=== PATIENT | female | born 1990 | race Caucasian/White ===

== ENCOUNTER 2016-10-17 21:49 | Emergency (ER) | payer MEDICAID ==
[~2016-10-17] VITALS: Ht 167.6 cm; Wt 108.5 kg
[~2016-10-17 21:49] MED LIST: DENIES; HYDR-3498 PO; NPH10OT RIGHT EAR; PREN1TAB13
[2016-10-17 21:55] VITALS: Ht 167.6 cm; Wt 108.5 kg
--- NOTE | 2016-10-17 22:24 | ERD ---
ER Documentation Chief Complaint Date/Time DATE: 10/17/16 TIME: 22:10 Chief Complaint menstrual cramps, menstruation x 9 days HPI 26-year-old female presents emergency department for pelvic pain for 9 days. Also complains of vaginal bleeding. Stated that her menstrual period was supposed to stop 9 days ago but continued. Sexually active with one partner only. Last sexual activity was 2-1/2 weeks ago. Partner has no symptoms. Denies headache, loss of consciousness, dizziness, blurry vision, changes in vision, photophobia, facial pain, ear pain, throat pain, difficulty swallowing, neck pain, shoulder pain, chest pain, cough, hemoptysis, abdominal pain, back pain, loss of appetite, nausea, vomiting, hematochezia, diarrhea, constipation, , the possibility of being , bladder and bowel incontinences, extremity weakness, extremity tenderness, numbness or tingling sensation, difficulty walking, recent travel, recent exposure to illness, recent antibiotic use in the last 3 months, fever, chills. LMP: Stated that she still having vaginal bleeding. A0. No known drug allergies. No past medical history. Surgical history: 2. Medication: control pills. Social: Works as a oral hygienist. Denies smoking, use of alcohol, use of illegal drugs. ROS All systems reviewed and are negative except as per history of present illness. Medications Home Meds Active Scripts Acetaminophen* (Tylophen*) 500 Mg Capsule, 2 CAP PO Q8H Y for PAIN AND OR ELEVATED TEMP, #20 CAP Prov:YAMILETH MIRZA F 10/18/16 Multivit/Min/Fol Ac/Iron/Pren* ( S*) 1 Tab Tab, 1 TAB PO DAILY, #30 TAB Prov:YAMILETH MIRZA F 10/18/16 Hydrocodone Bit-Acetaminophen* ([place]*) 5-325 Mg Tab, 1 TAB PO Q4H Y for pa, # 30 TAB Prov:FRITZ CAMPO NP 02/28/15 Neomycin/Polymyxin/Hydrocort* (Cortisporin* Otic) 10 Ml Susp, 4 DROP RIGHT EAR QID for 7 Days, EA Prov:FRITZ CAMPO NP 02/28/15 Reported Medications [none] Unknown Strength No Conflict Check 02/28/15 Allergies Allergies: Coded Allergies: No Known Drug Allergy (Verified Allergy, Unknown, 02/28/15) PMhx/Soc Medical and Surgical Hx: pt denies Medical Hx History of Surgery: Yes (2 CSECTION) Anesthesia Reaction: No Hx Neurological Disorder: No Hx Respiratory Disorders: No Hx Cardiac Disorders: No Hx Psychiatric Problems: No Hx Miscellaneous Medical Probl: No Hx Alcohol Use: No Hx Substance Use: No Hx Tobacco Use: No Smoking Status: Never smoker Physical Exam Vitals Vital Signs Date Time Temp Pulse Resp B/P Pulse Ox O2 Delivery O2 Flow Rate FiO2 10/18/16 02:27 98.2 86 22 98 Room Air 10/17/16 21:55 99.1 83 20 176/87 100 Physical Exam CONSTITUTIONAL: Well-appearing; well-nourished; in no apparent distress. HEAD: Normocephalic; atraumatic. EYES: Conjunctiva clear, sclera non-icteric, EOM intact. PERRL Ears: Hearing intact. EACs clear, TMs non-bulging, non-inflamed, translucent & mobile, ossicles normal appearance, No obstructions, no erythema, no discharges Nose: No obstructions. No polyps. No external lesions. Mucosa non-inflamed. No external lesions, septum and turbinates normal. No rhinorrhea. No discharges. Frontal sinus is non-tender to palpation. Maxillary sinus is non-tender to palpation. MOUTH: Moist mucous membranes, no lesion, no obstructions, no vesicles, no thrush, patent airway Throat: Uvula in midline. Right tonsil is +1 with no erythema, no exudate. Left tonsil is +1 with no erythema, no exudate. Tolerating secretions well. Good gag reflex. Patent airway. Neck: Supple, without lesions, bruits, or adenopathy. No mass. Thyroid non- enlarged and non-tender to palpation. CHEST: Symmetrical chest. Respirations even and not labored. No retractions noted. CARDIOVASCULAR: Normal S1, S2. RRR. No murmurs, gallops. RESPIRATORY: Normal chest excursion with respiration; breath sounds clear and equal bilaterally; no wheezes, rhonchi, or rales. Breathing even and unlabored. Speaking in clear, full, and complete sentences w/ ease. ABDOMEN: Normal bowel sounds normal. Soft, round, non-distended, non-guarding, no tenderness, no rebound, no organomegaly, no masses, no pulsating abdominal mass. No hernia. No peritoneal signs. : No CVA tenderness. BACK: Symmetrical shoulder. Spine is midline without deformity, tenderness. No evidence of trauma or deformity. PELVIS: Stable pelvis. No evidence of trauma or deformity. Has pelvic tenderness to palpation. MUSCULOSKELETAL: Normal gait and station. No misalignment, asymmetry, crepitation, defects, tenderness, masses, effusions, decreased range of motion, instability, atrophy or abnormal strength or tone in the head, neck, spine, ribs , pelvis or extremities. No calf tenderness. NEUROVASCULAR: Distal pulses are present. Pedal pulse are present, equal, and normal. Capillary refills are < 2 seconds. NEUROLOGIC: Alert and oriented x4. Speaks full and clear sentences. Cranial Nerves II-XII normal. Sensation to pain, touch, and proprioception normal. Grossly unremarkable. No neurologic deficits. Romberg test is negative. PSYCHOLOGICAL: The patients mood and manner are appropriate. No hallucinations , delusions. Not SI. Not HI. Has the capacity to decide for self SKIN: Normal for age and ethnicity; warm; dry; good turgor; no apparent lesions or exudates. No rashes, hives, discoloration. Intact. Result Diagram: 10/17/16 [id number] Results 24 hrs Laboratory Tests Test 10/17/16 22:58 10/17/16 23:00 10/18/16 00:45 Urine Color YELLOW Urine Clarity SLIGHTLY CLOUDY Urine pH 6.0 Urine Specific [place] 1.018 Urine Ketones NEGATIVEmg/dL Urine Nitrite NEGATIVEmg/dL Urine Bilirubin NEGATIVEmg/dL Urine Urobilinogen NEGATIVEmg/dL Urine Leukocyte Esterase TRACELeu/ul Urine Microscopic RBC 140/HPF Urine Microscopic WBC 15/HPF Urine Squamous Epithelial Cells FEW/HPF Urine Bacteria FEW/HPF Urine Mucus FEW/HPF Urine Hemoglobin 3+mg/dL Urine Glucose 1+mg/dL Urine Total Protein 1+mg/dl White Blood Count 8.210^3/ul Red Blood Count 4.1910^6/ul Hemoglobin 11.5g/dl Hematocrit 36.2% Mean Corpuscular Volume 86.4fl Mean Corpuscular Hemoglobin 27.4pg Mean Corpuscular Hemoglobin Concent 31.8g/dl Red Cell Distribution Width 13.3% Platelet Count 57164^3/UL Mean Platelet Volume 11.3fl Neutrophils % 52.7% Lymphocytes % 37.4% Monocytes % 6.5% Eosinophils % 2.2% Basophils % 1.0% Nucleated Red Blood Cells % 0.0/100WBC Neutrophils # (Manual) 410^3/ul Lymphocytes # 3.110^3/ul Monocytes # 0.510^3/ul Eosinophils # 0.210^3/ul Basophils # 0.110^3/ul Nucleated Red Blood Cells # 0.010^3/ul Sodium Level 139mmol/L Potassium Level 3.8mmol/L Chloride Level 100mmol/L Carbon Dioxide Level 27mmol/L Anion Gap 16 Blood Urea Nitrogen 9mg/dl Creatinine 0.62mg/dl Glucose Level 173mg/dl Calcium Level 9.7mg/dl Total Bilirubin 0.1mg/dl Direct Bilirubin 0.00mg/dl Indirect Bilirubin 0.1mg/dl Aspartate Amino Transf (AST/SGOT) 151IU/L Alanine Aminotransferase (ALT/SGPT) 196IU/L Alkaline Phosphatase 86IU/L Total Protein 8.4g/dl Albumin 4.6g/dl Globulin 3.80g/dl Albumin/Globulin Ratio 1.21 Amylase Level 63U/L Lipase 50U/L Serum HCG, Qualitative POSITIVE Beta HCG, Quantitative 471.0mIU/ml Prothrombin Time 12.7Sec Prothrombin Time Ratio 1.0 INR International Normalized Ratio 0.95 Activated Partial Thromboplast Time 26.2Sec Current Medications Medications (Trade) Dose Ordered Sig/[place]ble Route PRN Reason Start Time Stop Time Status Last Admin Dose Admin Acetaminophen (Tylenol Tab) 650 mg ONCE ONCE PO 10/17/16 22:30 10/17/16 22:31 DC 10/17/16 23:28 Procedures/MDM Examination: Please see physical examination. Disease process, medical treatment was explained to the patient and family member. They verbalized understanding and agreed with the diagnostic tests, medical treatment, and follow-up care. Radiology: OB ultrasound Impression: 1. Increased endometrial thickness of 17.7 mm possibly reflecting blood clots or related to the patients phase of menstruation. 2. Incidental 1.5 cm left ovarian cyst. Blood works: Reviewed. Type and Rh: HCG quantitative: 471. Serum : Positive. Urinalysis: Reviewed. Treatment: Tylenol. Re-evaluation: Denies headache, dizziness, blurry vision, neck pain, shoulder pain, chest pain, back pain, abdominal pain, nausea, vomiting. No episode of emesis in the emergency department. Alert and oriented 4. Speaks full and clear sentences. Respirations even and unlabored. Lung sounds clear to auscultation. Active bowel sounds. There is no right upper/right lower/ epigastric/left upper/left lower abdominal tenderness and light and deep palpation. Negative on [place] sign. Negative [place] sign. Able to jump 5 times without developing right-sided abdominal pain. No peritoneal signs. Ambulatory with steady gait. No neurovascular deficits. No neurological deficits. Denies active bleeding. Consultation: This case was discussed with supervising emergency room physician , Dr. Lio Baldwin who who stated the patient could go home with a final diagnosis of incidental and vaginal bleeding in first trimester. Differential diagnosis: Ovarian torsion versus ovarian cyst versus fibroids versus pelvic inflammatory disease versus versus abnormal versus ectopic Medical decision [age]-year-old female presents emergency department for pelvic pain for 9 days. Also complains of vaginal bleeding. Stated that her menstrual period was supposed to stop 9 days ago but continued. Sexually active with one partner only. Last sexual activity was 2-1/2 weeks ago. Partner has no symptoms. Patient's complaint, patient history about her complaint, diagnostic test results, my physical findings, my reevaluation are consistent my final diagnosis of incidental , vaginal bleeding and . Case discussed with attending physician, Dr. Lio Baldwin who also examined the patient and agreed with the medical decision making to discharge patient and have the patient follow-up with OB in the next 24-48 hours. Patient verbalized understanding and agreed with the plan of care. Medications prescribed are the following: vitamins. Tylenol. Patient and family member are made aware of the side effects and adverse reactions of the medications prescribed. Instructed on when to seek emergent and medical attention in case allergic/anaphylactic reactions or severe side effects and or adverse reactions to medications. Patient and family member verbalized understanding. Patient instructed Instructed to follow-up with his PCP in 24-48 hours. Follow-up with OB in the next 24-48 hours. Instructed to Call 911 for chest pain, shortness of breath. Advised to come back here in ED as soon as possible for severity of symptoms which includes but not limited to: any new symptoms; shortness of breath/difficulty of breathing; cardiovascular changes; severe gastrointestinal symptoms; signs and symptoms of bleeding and or infection; signs of compartment syndrome/neurovascular changes; neurological changes/deficits. Patient and family member verbalized understanding. Upon discharge, patient is alert and oriented x 4, speaks full and clear sentences, denies pain, has no neurological deficits, has no neurovascular deficits, difficulty of breathing. Breathing even and unlabored. Lung sounds are clear to auscultation. Not in distress. Appears comfortable. Ambulatory with steady gait. Appears satisfied with care provided here in ED. Hemodynamically stable on discharge. Departure Diagnosis: Primary Impression: Vaginal bleeding in Additional Impression: Incidental Condition: Stable Additional Instructions: Instructed to follow-up with his PCP in 24-48 hours. Follow-up with OB in the next 24-48 hours. Instructed to Call 911 for chest pain, shortness of breath. Advised to come back here in ED as soon as possible for severity of symptoms which includes but not limited to: any new symptoms; shortness of breath/difficulty of breathing; cardiovascular changes; severe gastrointestinal symptoms; signs and symptoms of bleeding and or infection; signs of compartment syndrome/neurovascular changes; neurological changes/deficits. Patient and family member verbalized understanding. YAMILETH MIRZA Oct 17, 2016 22:23
[2016-10-17] MEDS ORDERED: ACETAMINOPHEN 325 MG TAB PO ONE (22:30)
[2016-10-17 23:36] LABS: BASOPHIL # 0.1 10^3/ul (0.0-0.1); EOSINOPHILS # 0.2 10^3/ul (0.0-0.5); EOSINOPHILS % 2.2 % (0.0-7.0); HEMATOCRIT 36.2 % (37.0-47.0); HEMOGLOBIN 11.5 g/dl (12.0-16.0); LYMPHOCYTES # 3.1 10^3/ul (0.8-2.9); LYMPHOCYTES % 37.4 % (15.0-51.0); MEAN CORPUSCULAR HEMOGLOBIN 27.4 pg (29.0-33.0); MEAN CORPUSCULAR HGB CONC 31.8 g/dl (32.0-37.0); MEAN CORPUSCULAR VOLUME 86.4 fl (82.0-101.0); MEAN PLATELET VOLUME 11.3 fl (7.4-10.4); MONOCYTE # 0.5 10^3/ul (0.3-0.9); MONOCYTES % 6.5 % (0.0-11.0); NEUTROPHILS % 52.7 % (39.0-77.0); PLATELET COUNT 236 10^3/UL (140-415); RED BLOOD COUNT 4.19 10^6/ul (4.20-5.40); RED CELL DISTRIBUTION WIDTH 13.3 % (11.5-14.5); WHITE BLOOD COUNT 8.2 10^3/ul (4.8-10.8)
--- NOTE | 2016-10-17 23:38 | RADRPT ---
PROCEDURE: US Pelvis. CLINICAL INDICATION: Pelvic pain. Vaginal bleeding TECHNIQUE: Multiple sonographic images of the pelvis were obtained utilizing a transabdominal and endovaginal technique. The images were reviewed on a PACS workstation. COMPARISON: None available FINDINGS: Uterus: Normal in size, contour and echogenicity with no evidence for myometrial masses. Size is est imated at 7.6 x 6.2 x 4.0 cm. Cervix: No abnormalities of significance are seen. Endometrium: Heterogeneous in echotexture and increased in thickness; 17.7 mm. Normal blood flow on Doppler interrogation Right ovary / adnexa: Normal in size estimated at 2.9 x 2.1 x 1.8 cm. No evidence for masses, norm al blood flow on Doppler interrogation. Left ovary/adnexa: Normal in size estimated at 3.4 x 2.5 x 2.1 cm. No evidence for solid masses, no rmal blood flow on Doppler interrogation. Simple cyst of 1.5 cm is present Cul-de-sac: No evidence of free fluid. RPTAT:HJJR IMPRESSION: 1. Increased endometrial thickness of 17.7 mm possibly reflecting blood clots or related to the pat ients phase of menstruation. 2. Incidental 1.5 cm left ovarian cyst. Physician Ezra Date Time Electronically viewed and signed by Physician Ezra on 10/17/2016 23:37 JR/
[2016-10-17 23:46] LABS: ADD UMIC YES; UR ASCORBIC ACID NEGATIVE (NEGATIVE); UR BACTERIA FEW /HPF (NONE SEEN); UR BILIRUBIN (Dip) NEGATIVE (NEGATIVE); UR BLOOD (Dip) 3+ mg/dL (NEGATIVE); UR CLARITY SLIGHTLY CLOUDY (CLEAR); UR COLOR YELLOW (YELLOW); UR GLUCOSE (Dip) 1+ mg/dL (NEGATIVE); UR KETONES (Dip) NEGATIVE (NEGATIVE); UR LEUKOCYTE ESTERASE (Dip) TRACE Leu/ul (NEGATIVE); UR MUCUS FEW /HPF (NONE SEEN); UR NITRITE (Dip) NEGATIVE (NEGATIVE); UR RBC 140 /HPF (0-5); UR SPECIFIC GRAVITY (Dip) 1.018 (1.003-1.030); UR SQUAMOUS EPITHELIAL CELL FEW /HPF (FEW); UR TOTAL PROTEIN (Dip) 1+ mg/dl (NEGATIVE); UR UROBILINOGEN (Dip) NEGATIVE (NEGATIVE)
[2016-10-18 00:03] LABS: ALBUMIN 4.6 g/dl (3.3-4.9); ALBUMIN/GLOBULIN RATIO 1.21; BILIRUBIN,INDIRECT 0.1 mg/dl (0-1.1); BILIRUBIN,TOTAL 0.1 mg/dl (0.2-1.3); CALCIUM 9.7 mg/dl (8.4-10.2); CREATININE 0.62 mg/dl (0.44-1.00); POTASSIUM 3.8 mmol/L (3.5-5.1); TOTAL PROTEIN 8.4 g/dl (6.1-8.1)
[2016-10-18 01:28] LABS: INR 0.95; PROTIME 12.7 Sec (12.2-14.2)
[2016-10-18 01:29] LABS: PARTIAL THROMBOPLASTIN TIME 26.2 Sec (25.0-35.0)
[2016-10-18] MEDS ORDERED: PRENAT PO (01:55)
[2016-10-18] MEDS ORDERED: ACET500C5 PO (01:56)
[2016-10-18 02:27] VITALS: PULSE 86; RESP 22; TEMP 98.2
== END 2016-10-18 02:28 | disposition home or self-care (01) ==
LOC: FTE 21:49
DX: N93.8 Other specified abnormal uterine and vaginal bleeding (principal); Z33.1 Pregnant state, incidental
CPT/HCPCS: 36415; 76830; 76856; 80053; 81001; 82150; 83690; 84702; 84703; 85025; 85610; 85730; 86900; 86901; Z7502; Z7610